=== PATIENT | female | born 1935 | race Caucasian/White ===

== ENCOUNTER 2021-03-09 13:40 | Observation (INO) | payer MEDICARE ==
[~2021-03-09] VITALS: Ht 167.6 cm; Wt 70.8 kg
[~2021-03-09 13:40] MED LIST: AMBIEN5 MG PO; AMLODIPINE BESYL5 MG PO; COUMADIN5 MG PO; LEVOTHYROXINE; LEVOTHYROXINE100 MC1 PO; LIBRAX1 CAP GT; METOPROLOL; METOPROLOL TART25 MG PO; NITROFURANTOIN100 MG PO; SIMVASTATIN40 MG PO; TRAMADOL HCL50 M1 PO; ULTRAM 50MG50 MG PO; URSODIOL300 MG PO; XALATAN2.5 ML; Z.0.AMBIEN5 MG PO; Z.0.DIGOXIN125 MCG PO; Z.0.LISINOPRIL10 MG PO; Z.0.MELOXICAM7.5 MG PO; Z.0.PRADAXA150 MG PO; ZOFRAN ODT4 MG
[2021-03-09 14:29] LABS: BASOPHILS # (AUTO) 0.1 (0.0-0.1); EOSINOPHILS # (AUTO) 0.4 (0.0-0.4); EOSINOPHILS % 6.5 % (0.0-6.0); HEMOGLOBIN 12.5 g/dL (12.0-16.0); LYMPHOCYTES # (AUTO) 1.3 (1.0-3.2); LYMPHOCYTES % 20.3 % (18.0-39.1); MEAN CORPUSCULAR HEMOGLOBIN 31.3 pg (28-32); MEAN CORPUSCULAR HGB CONC 32.1 g/dL (31-35); MEAN CORPUSCULAR VOLUME 97.5 fL (81-99); MONOCYTES # (AUTO) 0.7 (0.2-0.8); MONOCYTES % 11.2 % (4.4-11.3); NEUTROPHILS # (AUTO) 3.8 (2.1-6.9); NEUTROPHILS % 60.7 % (38.7-80.0); PLATELET COUNT 180 x10e3/uL (140-360); RED CELL DISTRIBUTION WIDTH 13.1 % (11.7-14.4)
[2021-03-09 14:49] LABS: ALBUMIN 3.3 g/dL (3.5-5.0); ALBUMIN/GLOBULIN RATIO 1.4 (0.8-2.0); ANION GAP 13.6 mmol/L (8-16); CALCIUM 9.7 mg/dL (8.4-10.2); CREATININE, SERUM 1.13 mg/dL (0.57-1.11); LIPASE 69 U/L (8-78); POTASSIUM 3.6 mmol/L (3.5-5.1)
[2021-03-09] MEDS ORDERED: ONDANSETRON HCL INJ 2MG/ML 2ML 2 MG/ML VIAL IV PRN (15:15)
[2021-03-09] MEDS ORDERED: ASPIRIN 81 MG CHEW TAB PO ONE (15:15)
[2021-03-09 16:04] LABS: CLARITY,URINE SL CLOUDY (CLEAR); COLOR,URINE YELLOW (YELLOW); LEUKOCYTE ESTERASE ,URINE NEGATIVE (NEGATIVE); NITRITE,URINE NEGATIVE (NEGATIVE)
[2021-03-09 16:05] LABS: KETONES,URINE TRACE (NEGATIVE); PROTEIN,URINE DIPSTICK NEGATIVE (NEGATIVE); URINE UROBILINOGEN 0.2 mg/dL (0.2 - 1)
[2021-03-09 16:16] LABS: BACTERIA,URINE FEW /HPF; CALCIUM OXALATE CRYSTALS,UR MODERATE (FEW); EPITHELIAL CELLS,URINE MODERATE /LPF
[2021-03-09 16:17] LABS: AMORPHOUS SEDIMENT,URINE MODERATE (FEW)
[2021-03-09] MEDS ORDERED: ACETAMINOPHEN 325 MG TAB PO PRN (17:30)
[2021-03-09] MEDS ORDERED: ONDANSETRON HCL 4 MG ORAL DISINTEGRATING TAB PO PRN (17:30)
[2021-03-09 18:26] VITALS: BP 157/74
[2021-03-09 20:07] VITALS: BP 137/84
[2021-03-09] MEDS ORDERED: SIMVASTATIN 40 MG TAB PO SCH (21:00)
[2021-03-09] MEDS ORDERED: ZOLPIDEM TARTRATE 5 MG TAB PO PRN (21:00)
[2021-03-09] MEDS: TRAMADOL HCL 50 MG TAB PO SCH ×2 (21:00→21:05)
[2021-03-09] MEDS: URSODIOL 300 MG CAP PO SCH (21:05)
[2021-03-09 22:12] VITALS: BP 137/84
[2021-03-10] VITALS (8 sets, daily range): BP systolic 129–168; BP diastolic 74–101
[2021-03-10 05:05] LABS: BASOPHILS # (AUTO) 0.1 (0.0-0.1); EOSINOPHILS # (AUTO) 0.4 (0.0-0.4); EOSINOPHILS % 7.6 % (0.0-6.0); HEMATOCRIT 39.1 % (34.2-44.1); HEMOGLOBIN 12.8 g/dL (12.0-16.0); LYMPHOCYTES # (AUTO) 0.9 (1.0-3.2); LYMPHOCYTES % 18.6 % (18.0-39.1); MEAN CORPUSCULAR HEMOGLOBIN 31.2 pg (28-32); MEAN CORPUSCULAR HGB CONC 32.7 g/dL (31-35); MEAN CORPUSCULAR VOLUME 95.4 fL (81-99); MONOCYTES # (AUTO) 0.6 (0.2-0.8); MONOCYTES % 12.3 % (4.4-11.3); NEUTROPHILS # (AUTO) 2.9 (2.1-6.9); NEUTROPHILS % 60.1 % (38.7-80.0); PLATELET COUNT 145 x10e3/uL (140-360); RED CELL DISTRIBUTION WIDTH 12.8 % (11.7-14.4)
[2021-03-10 05:15] LABS: INR 0.98; PROTHROMBIN TIME 13.2 seconds (11.9-14.5)
[2021-03-10 05:19] LABS: ANION GAP 13.5 mmol/L (8-16); CALCIUM 10.1 mg/dL (8.4-10.2); CREATININE, SERUM 0.84 mg/dL (0.57-1.11); POTASSIUM 3.5 mmol/L (3.5-5.1)
[2021-03-10] MEDS ORDERED: LEVOTHYROXINE SODIUM 100 MCG TAB PO SCH (06:00)
[2021-03-10 06:10] LABS: CREATINE KINASE MB 1.1 ng/mL (0-5.0)
[2021-03-10] MEDS: METOPROLOL TARTRATE 25 MG TAB PO SCH ×2 (08:33→17:12)
[2021-03-10] MEDS: URSODIOL 300 MG CAP PO SCH ×2 (08:33→14:23)
[2021-03-10] MEDS: TRAMADOL HCL 50 MG TAB PO SCH ×3 (08:42→17:14)
[2021-03-10] MEDS ORDERED: LATANOPROST(OPTH) 2.5 ML BTL OU SCH (09:00)
[2021-03-10] MEDS ORDERED: AMLODIPINE BESYLATE 5 MG TAB PO SCH (09:00)
[2021-03-10] MEDS ORDERED: ENOXAPARIN INJ 80 MG/0.8 ML SYR SC SCH (15:00)
[2021-03-10 15:25] LABS: CREATINE KINASE MB 1.2 ng/mL (0-5.0)
[2021-03-10] MEDS ORDERED: WARFARIN SOD 5 MG TAB PO SCH ×2 (17:00)
== END 2021-03-10 21:00 | disposition home or self-care (01) ==
LOC: ER 14:08 → ERHOLD 15:23 → MED/SURG2 16:45
PROVIDERS: ADMIT Internal Medicine; ATTEND Internal Medicine
DX: R07.89 Other chest pain (principal); R00.2 Palpitations; E03.9 Hypothyroidism, unspecified; E21.3 Hyperparathyroidism, unspecified; I48.0 Paroxysmal atrial fibrillation; Z79.01 Long term (current) use of anticoagulants; Z20.822 Contact with and (suspected) exposure to COVID-19
CPT/HCPCS: 36415 ×2; 71045; 80048; 80053; 81001; 82550; 82553; 83690; 84484 ×2; 85025 ×2; 85610; 93005; 93306; 99284; G0378 ×2; J1650; U0002